=== PATIENT | male | born 1950 | race African-American/Black ===

== ENCOUNTER → 2016-04-05 | Outpatient (CLI) | payer MEDICAID | LOC: RAD 07:45 | PROVIDERS: ATTEND Internal Medicine Medical Oncology | DX: C91.10 Chronic lymphocytic leukemia of B-cell type not having achieved remission (principal) | CPT/HCPCS: 78815; A9552 ==

== ENCOUNTER → 2016-04-23 | Outpatient (CLI) | payer MEDICAID | LOC: RAD 08:12 | PROVIDERS: ATTEND Urology | DX: C61 Malignant neoplasm of prostate (principal) | CPT/HCPCS: 78306; A9503; Q9969 ==

== ENCOUNTER → 2016-08-02 | Outpatient (CLI) | payer MEDICAID ==
[2016-08-02 11:54] LABS: ABSOLUTE EOSINOPHILS # (AUTO) 0.1 10^3/uL (0.0-0.6); ABSOLUTE LYMPHOCYTES (AUTO) 3.9 10^3/uL (0.5-4.7); ABSOLUTE MONOCYTES (AUTO) 0.4 10^3/uL (0.1-1.4); ABSOLUTE NEUT (AUTO) 2.9 10^3/uL (1.7-8.2); BASOPHILS % (AUTO) 0.5 % (0-2); HEMATOCRIT 46.1 % (37.9-51.0); HEMOGLOBIN 15.5 g/dL (13.5-17.0); HGB HCT DIFFERENCE 0.4; LYMPHOCYTES % (AUTO) 52.5 % (13-45); MEAN CORPUSCULAR HEMOGLOBIN 31.2 pg (27.0-33.4); MEAN CORPUSCULAR HGB CONC 33.5 g/dL (32.0-36.0); MEAN CORPUSCULAR VOLUME 93 fl (80-97); MONOCYTES % (AUTO) 6.1 % (3-13); RED BLOOD COUNT 4.95 10^6/uL (4.35-5.55); RED CELL DISTRIBUTION WIDTH 14.2 % (11.5-14.0); SEGMENTED NEUTROPHILS % (AUTO) 38.9 % (42-78); WHITE BLOOD COUNT 7.4 10^3/uL (4.0-10.5)
[2016-08-02 12:13] LABS: BLOOD UREA NITROGEN 8 mg/dL (7-20); CREATININE RESULT 0.93 mg/dL (0.52-1.25)
== END ==
LOC: LAB 10:51
PROVIDERS: ATTEND Radiology Radiation Oncology
DX: C61 Malignant neoplasm of prostate (principal)
CPT/HCPCS: 36415; 82565; 84153; 84520; 85025

== ENCOUNTER → 2016-09-02 | Outpatient (CLI) | payer MEDICAID ==
--- NOTE | 2016-09-02 15:07 | RADIOLOGY REPORT (SQ) ---
EXAM DESCRIPTION: ACUTE ABDOMEN SERIES COMPLETED DATE/TIME: 09/02/2016 2:55 pm REASON FOR STUDY: MALIGNANT NEOPLASM OF PROSTATE C61 MALIGNANT NEOPLASM OF PROSTATE COMPARISON: None. NUMBER OF VIEWS: Three views. TECHNIQUE: Frontal chest, supine abdomen and upright/decubitus abdomen radiographic images acquired. LIMITATIONS: None. FINDINGS: CHEST: Lungs clear of infiltrates. FREE AIR: None. No abnormal gas collections. BOWEL GAS PATTERN: Nonobstructive pattern. No dilated loops or air fluid levels. CALCIFICATIONS: No suspicious calcifications. HARDWARE: None in the abdomen. SOFT TISSUES: No gross mass or suggestion of organomegaly. BONES: No acute fracture. No worrisome bone lesions. OTHER: No other significant finding. IMPRESSION: NO RADIOGRAPHIC EVIDENCE FOR ACUTE ABDOMINAL DISEASE. TECHNICAL DOCUMENTATION: JOB ID: [id number] [employer]- All Rights Reserved
[2016-09-02 15:29] LABS: ABSOLUTE EOSINOPHILS # (AUTO) 0.1 10^3/uL (0.0-0.6); ABSOLUTE LYMPHOCYTES (AUTO) 2.9 10^3/uL (0.5-4.7); ABSOLUTE MONOCYTES (AUTO) 0.4 10^3/uL (0.1-1.4); ABSOLUTE NEUT (AUTO) 2.2 10^3/uL (1.7-8.2); BASOPHILS % (AUTO) 0.4 % (0-2); EOSINOPHILS % (AUTO) 1.9 % (0-6); HEMATOCRIT 47.7 % (37.9-51.0); HEMOGLOBIN 15.5 g/dL (13.5-17.0); HGB HCT DIFFERENCE -1.2; LYMPHOCYTES % (AUTO) 51.9 % (13-45); MEAN CORPUSCULAR HEMOGLOBIN 30.7 pg (27.0-33.4); MEAN CORPUSCULAR HGB CONC 32.4 g/dL (32.0-36.0); MEAN CORPUSCULAR VOLUME 95 fl (80-97); MONOCYTES % (AUTO) 6.8 % (3-13); RED BLOOD COUNT 5.04 10^6/uL (4.35-5.55); RED CELL DISTRIBUTION WIDTH 13.6 % (11.5-14.0); WHITE BLOOD COUNT 5.6 10^3/uL (4.0-10.5)
== END ==
LOC: RAD 14:43
PROVIDERS: ATTEND Radiology Radiation Oncology
DX: C61 Malignant neoplasm of prostate (principal); R97.20 Elevated prostate specific antigen [PSA]; C91.10 Chronic lymphocytic leukemia of B-cell type not having achieved remission; R10.9 Unspecified abdominal pain
CPT/HCPCS: 36415; 74022; 85025

== ENCOUNTER → 2017-02-03 | Outpatient (CLI) | payer MEDICARE, MEDICAID | LOC: OD 08:54 | PROVIDERS: ATTEND Radiology Radiation Oncology | DX: C61 Malignant neoplasm of prostate (principal); R97.20 Elevated prostate specific antigen [PSA]; C91.10 Chronic lymphocytic leukemia of B-cell type not having achieved remission | CPT/HCPCS: 36415; 84153 ==

== ENCOUNTER → 2017-05-12 | Outpatient (CLI) | payer OTHER, MEDICAID ==
--- NOTE | 2017-05-12 16:56 | RADIOLOGY REPORT (SQ) ---
EXAM DESCRIPTION: NM WHOLE BODY BONE SCAN COMPLETED DATE/TIME: 05/12/2017 3:06 pm REASON FOR STUDY: PROSTATE CA (C61 C61 MALIGNANT NEOPLASM OF PROSTATE COMPARISON: Bone scan 04/23/2016, 10/09/2015 PET-CT 04/05/2016 RADIONUCLIDE AND DOSE: 22 millicuries Tc99m MDP. The route of agent administration: Intravenous. ADDITIONAL DRUGS AND DOSES: None. TECHNIQUE: Routine delayed images at 3 hours post radionuclide injection acquired of the bony skelet on including anterior and posterior whole-body projections and additional focused images as needed. LIMITATIONS: None. FINDINGS: BONES: Mild increased uptake along the right 10th costovertebral joint, similar compared t o prior bone scan exams from 04/23/2016 and 10/09/2015. This correlates with bulky bony spurring on PET -CT 04/05/2016. Mild increased uptake in the left elbow, proximal radius and distal humerus likely from osteoarthriti s. Remainder of the skeletal uptake is otherwise unremarkable. KIDNEYS: Symmetric excretion without obstruction. OTHER: No other significant finding. IMPRESSION: No bone scan activity worrisome for metastatic disease given history of prostate cancer COMMENT: Quality measure 147: Current bone scan is compared with any available plain radiographs, p rior bone scans, and CT/MRI. TECHNICAL DOCUMENTATION: JOB ID: [id number] [employer]- All Rights Reserved Reading location - IP/workstation name: [email or web address]
== END ==
LOC: RAD 11:05
PROVIDERS: ATTEND Internal Medicine Medical Oncology
DX: C61 Malignant neoplasm of prostate (principal)
CPT/HCPCS: 78306; A9561; Q9969

== ENCOUNTER → 2017-06-24 | Outpatient (CLI) | payer MEDICARE, MEDICAID ==
--- NOTE | 2017-06-25 08:36 | RADIOLOGY REPORT (SQ) ---
EXAM DESCRIPTION: PET CT SKULL/THIGH COMPLETED DATE/TIME: 06/24/2017 9:58 pm REASON FOR STUDY: PROSTATE CA C61 MALIGNANT NEOPLASM OF PROSTATE COMPARISON: Bone scan 05/12/2017 PET-CT 04/05/2016 CT pelvis 10/31/2015 RADIONUCLIDE AND DOSE: 10.9 mCi F18 FDG The route of agent administration: Intravenous FASTING BLOOD SUGAR: 88 mg/dl CONTRAST TYPE AND DOSE: No CT contrast given. TECHNIQUE: Blood glucose level was verified. Above dose of FDG was injected intravenously. 2-D seg mented attenuation correction images were obtained from the base of the skull to the midthighs. Nonc ontrast CT images were obtained for attenuation correction and fusion with emission images. CT image s were performed without oral or intravenous contrast and are not sensitive for parenchymal lesions. A series of overlapping emission PET images were obtained. Images reviewed and manipulated at [facility] work station by the radiologist. Images stored on PACS. LIMITATIONS: None. FINDINGS: HEAD AND NECK: No areas of abnormal metabolic activity in the soft tissues of the head and neck. CHEST: No areas of abnormal metabolic activity in the chest. ABDOMEN AND PELVIS: There is focal increased uptake at the pylorus. This raises a question of inflam matory change or peptic ulcer disease. SUV 6.7. Activity in a left lateral bladder diverticulum is present. This diverticulum is well demonstrated o n delay images through the bladder, CT pelvis 10/31/2015. No metabolically active pelvic or retroperitoneal lymph nodes. PROXIMAL LOWER EXTREMITIES: No areas of abnormal metabolic activity in the soft tissues of the lower extremities. BONES: No abnormal metabolic activity in the visualized skeleton. ADDITIONAL CT FINDINGS: Mild bilateral gynecomastia. Degenerative changes lower lumbar spine. Liver background SUV 2.5. Blood pool background SUV 2.0 IMPRESSION: No PET-CT evidence of metastatic or recurrent prostate cancer. TECHNICAL DOCUMENTATION: JOB ID: [id number] [employer] All Rights Reserved Reading location - IP/workstation name: [email or web address]
== END ==
LOC: RAD 14:30
PROVIDERS: ATTEND Internal Medicine Medical Oncology
DX: C61 Malignant neoplasm of prostate (principal)
CPT/HCPCS: 78815; A9552

== ENCOUNTER 2017-07-21 09:54 | Observation (INO) | payer MEDICARE, MEDICAID ==
[~2017-07-21 09:54] MED LIST: CEFAZOLIN 1 GM/D5W RTU 1 GM/50 ML RTUPB IV PRN; DEXTROSE 5%-1/2 NORMAL SALINE 1,000 ML IV PRN
[2017-07-21] MEDS ORDERED: MIDAZOLAM 2 MG/2 ML INJ ONE (10:29)
[2017-07-21] MEDS ORDERED: FENTANYL CITRATE INJ/PF 100 MCG/2 ML AMPUL ONE (10:29)
[2017-07-21] MEDS ORDERED: LIDOCAINE 0.5% INJ-PF (5 MG/ML) 50 ML SDV ONE (10:29)
[2017-07-21] MEDS ORDERED: BACITRACIN INJ 50,000 UNIT VIAL ONE (10:29)
[2017-07-21] MEDS ORDERED: DIAZEPAM 5 MG TABLET ONE (11:20)
[2017-07-21] MEDS ORDERED: OXYCODONE-ACETAMINOPHEN 5-325 MG TABLET ONE (11:20)
[2017-07-21] MEDS ORDERED: CEFAZOLIN INJ 1 GM VIAL ONE (11:36)
[2017-07-21 12:02] LABS: HEMATOCRIT 41.9 % (37.9-51.0); MEAN CORPUSCULAR HGB CONC 33.4 g/dL (32.0-36.0); MEAN CORPUSCULAR VOLUME 93 fl (80-97); PLATELET COUNT 120 10^3/uL (150-450); RED BLOOD COUNT 4.52 10^6/uL (4.35-5.55); RED CELL DISTRIBUTION WIDTH 13.7 % (11.5-14.0); WHITE BLOOD COUNT 4.5 10^3/uL (4.0-10.5)
[2017-07-21 12:15] LABS: ANION GAP 9 (5-19); BLOOD UREA NITROGEN 12 mg/dL (7-20); CALCIUM 9.2 mg/dL (8.4-10.2); CARBON DIOXIDE 27 mmol/L (22-30); CHLORIDE 109 mmol/L (98-107); GLUCOSE 91 mg/dL (75-110); POTASSIUM 4.6 mmol/L (3.6-5.0); SODIUM 145.3 mmol/L (137-145)
[2017-07-21] MEDS ORDERED: OXYCODONE-ACETAMINOPHEN 5-325 MG TABLET PO PRN (14:18)
[2017-07-21] MEDS ORDERED: NICOTINE 21 MG/24 HR PATCH.TD24 TD SCH (15:00)
--- NOTE | 2017-07-21 15:45 | RADIOLOGY REPORT (SQ) ---
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 FLUOROSCOPY TIME: 0.1 minute 21 images saved to PACS. TECHNIQUE: Intra-operative images acquired during surgical procedure to evaluate progress. NUMBER OF IMAGES: 21 LIMITATIONS: None. FINDINGS: Selected images from right-sided Port-A-Cath placement. Tip overlies SVC. IMPRESSION: IMAGE(S) OBTAINED DURING PROCEDURE. COMMENT: Quality ID [id number]: Final reports for procedures using fluoroscopy that document radiation exp osure indices, or exposure time and number of fluorographic images (if radiation exposure indices are not available) Please consult full operative report of the attending physician for description of the procedure. TECHNICAL DOCUMENTATION: JOB ID: [id number] [employer]- All Rights Reserved Reading location - IP/workstation name: [email or web address]
--- NOTE | 2017-07-21 16:35 | Discharge Summary ---
Discharge Summary (SDC) - Discharge Final Diagnosis: Chronic leukemia. Date of Surgery: 07/21/17 Discharge Date: 07/22/17 Condition: Fair Treatment or Instructions: Discharge home [after recovery per ASU criteria]. Diet,as tolerated, when fully awake advance as tolerated. Activities within moderation encouraged. Follow up in my office by appointment in about [1 week]. Call for appointment. Leave wounds [covered], [keep clean and dry, until office visit in 1 week]. Hold of on school/work [until evaluation in office]. Meds per med rec. Prescription for Percocet May shower [in 48 hrs], [try to keep operated area as dry as possible]. Prescriptions: Ketorolac Tromethamine [Toradol 10 mg Tablet] 10 mg PO Q8 #9 tablet Oxycodone HCl/Acetaminophen [Percocet 2.5-325 Mg Tablet] 1 each PO Q6HP PRN #15 tablet PRN Reason: Referrals: ELMER COLUNGA MD [Primary Care Provider] - Discharge Diet: As Tolerated Respiratory Treatments at Home: Deep Breathing/Coughing Report the Following to Your Physician Immediately: Shortness of Breath, Unusual Bleeding
--- NOTE | 2017-07-21 16:39 | Operative Report ---
Operative Report DATE OF SURGERY: 07/21/17 PREOPERATIVE DIAGNOSIS: Chronic leukemia. POSTOPERATIVE DIAGNOSIS: Chronic leukemia. OPERATION: 1. Ultrasound evaluation of the right internal jugular vein. 2. Insertion of Port-A-Cath via real-time access in the right internal jugular vein. 3. Angiogram and interpretation. SURGEON: GERRI CUTLER BUFFER NICKEL: None. ANESTHESIA: Moderate Sedation TISSUE REMOVED OR ALTERED: Not applicable. COMPLICATIONS: None. ESTIMATED BLOOD LOSS: 5 mL. INTRAOPERATIVE FINDINGS: Of a satisfactory right internal jugular vein, estimated to be 1.5 cm. Satisfactory axis with placement of the Port-A-Cath. The tip of the catheter just down in the right atrium. Easy egress of blood and ingress of heparinized solution. Angiogram demonstrated smooth flow of contrast through the superior vena cava, right atrium and ventricle. PROCEDURE: After obtaining informed consent, the patient was taken to the [employer]st and positioned supine. The [right] neck and chest were prepared with chlorhexidine and draped out with sterile linen. After the " universal timeout", in which it was verified that the patient continued to receive antibiotic, the procedure commenced. A steriley sheathed ultrasound probe was used to evaluate the [ right] internal jugular vein. Local anesthesia was infiltrated adjacent to the probe. Access into the [right] internal jugular vein was obtained using a micropuncture needle, followed by micropuncture wire and then a micropuncture catheter. This was followed by introduction of a 0.035 guidewire the tip of which was placed down into the inferior vena cava . The port sites was marked , locally anesthetized and incision made. Dissection now proceeded to the deep subcutaneous subcutaneous tissues so that a pocket for the port was made. Meticulous hemostasis was secured and the catheter was tunneled between the 2 incisions. Proximally, the catheter was now positioned using a peel-away sheath. Distally the catheter was tailored to an appropriate length and then mated to the port using the contained fixating device. The port was now placed in the pocket and the catheter optimally positioned. The port was accessed with a Galaviz needle and an angiogram done under digital subtraction. The findings as dictated. With adequate and satisfactory positioning, both lumens of the chamber were irrigated with heparinized solution. The wounds were now closed using interrupted 3-0 PDS to the subcutaneous tissues and a continuous subcuticular suture of 4-0 Monocryl to the skin. These are reinforced with Steri-Strips over benzoin and then dressings applied. Time: 0 Minute. Dose: 6.2 m Gy Contrast: 5 mls. Isovue 300. Copies of the dictated operative report for Dr. Gerri Amin MD.
[2017-07-21] MEDS: KETOROLAC TROMETHAMINE 10 MG TABLET PO PRN (17:45)
[2017-07-21] MEDS: ACYCLOVIR 200 MG CAPSULE PO SCH (18:42)
[2017-07-21] MEDS: HYDROCODONE/ACETAMINOPHEN 7.5-325 MG TABLET PO SCH ×2 (21:37→22:52)
[2017-07-22] MEDS: KETOROLAC TROMETHAMINE 10 MG TABLET PO PRN (05:25)
[2017-07-22] MEDS: ACYCLOVIR 200 MG CAPSULE PO SCH (08:35)
[2017-07-22] MEDS: HYDROCODONE/ACETAMINOPHEN 7.5-325 MG TABLET PO SCH (08:35)
[2017-07-22 09:54] VITALS: BP 144/88
[2017-07-22] MEDS ORDERED: BICALUTAMIDE 50 MG TABLET PO SCH (10:00)
[2017-07-22] MEDS ORDERED: LISINOPRIL PO SCH (10:00)
[2017-07-22] MEDS ORDERED: LISINOPRIL 10 MG TABLET PO SCH (10:00)
[2017-07-22] MEDS ORDERED: ACYCLOVIR 400 MG PO SCH (10:00)
--- NOTE | 2017-07-22 15:23 | RADIOLOGY REPORT (SQ) ---
EXAM DESCRIPTION: CHEST SINGLE VIEW COMPLETED DATE/TIME: 07/21/2017 10:40 am REASON FOR STUDY: PREOP COMPARISON: None. EXAM PARAMETERS: NUMBER OF VIEWS: One view TECHNIQUE: Single frontal radiograph of the chest. RADIATION DOSE: N/A LIMITATIONS: None. FINDINGS: LUNGS AND PLEURA: No opacities, masses or pneumothorax. No pleural effusion. MEDIASTINUM AND HILAR STRUCTURES: No masses. No contour abnormality. HEART AND VASCULAR STRUCTURES: Heart size normal. Vascularity normal. HARDWARE: None. BONES: No acute findings. OTHER: No other significant finding. IMPRESSION: NO ACUTE RADIOGRAPHIC FINDING IN THE CHEST. TECHNICAL DOCUMENTATION: JOB ID: [id number] [employer]- All Rights Reserved Reading location - IP/workstation name: [email or web address]
== END 2017-07-22 11:00 | disposition home or self-care (01) ==
LOC: CCL 09:54 → 3W 11:40
PROVIDERS: ADMIT Surgery; ATTEND Surgery
PROC: 0JH60WZ Insertion of Totally Implantable Vascular Access Device into Chest Subcutaneous Tissue and Fascia, Open Approach (ICD-10-PCS; principal; 2017-07-21)
PROC: 02H633Z Insertion of Infusion Device into Right Atrium, Percutaneous Approach (ICD-10-PCS; 2017-07-21)
DX: C91.90 Lymphoid leukemia, unspecified not having achieved remission (principal); C61 Malignant neoplasm of prostate; I10 Essential (primary) hypertension; M19.90 Unspecified osteoarthritis, unspecified site; G89.29 Other chronic pain; M54.9 Dorsalgia, unspecified; F17.210 Nicotine dependence, cigarettes, uncomplicated; Z01.818 Encounter for other preprocedural examination; Z79.899 Other long term (current) drug therapy
CPT/HCPCS: 36415; 85027; 80048; 36561; 76937; 77001; 71045; G0378 ×2; C1752; C1788; Q9967; A9270 ×10; J2250; J3490 ×2; J0690 ×2; J3010; J1644

== ENCOUNTER 2017-11-16 09:59 | Emergency (ER) | payer MEDICARE, MEDICAID ==
[2017-11-16 11:15] LABS: APPEARANCE,URINE CLOUDY; BILIRUBIN,URINE NEGATIVE (NEGATIVE); COLOR,URINE YELLOW; GLUCOSE, URINE NEGATIVE (NEGATIVE); KETONES,URINE NEGATIVE (NEGATIVE); LEUKOCYTE ESTERASE,URINE MODERATE (NEGATIVE); NITRITE,URINE NEGATIVE (NEGATIVE); PROTEIN,URINE 100 mg/dL (NEGATIVE); URINE SPECIFIC GRAVITY 1.029
[2017-11-16] MEDS ORDERED: CIPROFLOXACIN HCL 500 MG TABLET PO ONE (11:19)
--- NOTE | 2017-11-16 11:37 | ER Document Report ---
ED General - General Chief Complaint: Urinary Problem Stated Complaint: URINARY ISSUE Time Seen by Provider: 11/16/17 10:25 TRAVEL OUTSIDE OF THE [place] IN LAST 30 DAYS: No - HPI Patient complains to provider of: dysuria Notes: pt present for dysuria and bladder spasms. states hx of rad and chemo currently on hormone threapy state no f c n v d. no recent antibiotic. no dc from penis not sexually active - Related Data Allergies/Adverse Reactions: No Known Allergies Allergy (Verified 11/16/17 10:00) Past Medical History - Social History Smoking Status: Current Every Day Smoker Family History: Reviewed & Not Pertinent Patient has suicidal ideation: No Patient has homicidal ideation: No - Past Medical History Cardiac Medical History: Reports: Hx Hypertension Denies: Hx Coronary Artery Disease, Hx Heart Attack Pulmonary Medical History: Denies: Hx Asthma, Hx Bronchitis, Hx COPD, Hx Pneumonia Neurological Medical History: Denies: Hx Cerebrovascular Accident, Hx Seizures Renal/ Medical History: Denies: Hx Peritoneal Dialysis Musculoskeletal Medical History: Reports Hx Arthritis - gout - Immunizations Hx Diphtheria, Pertussis, Tetanus Vaccination: Yes Review of Systems - Review of Systems Constitutional: No symptoms reported EENT: No symptoms reported Cardiovascular: No symptoms reported Respiratory: No symptoms reported Gastrointestinal: No symptoms reported Genitourinary: Dysuria Male Genitourinary: No symptoms reported Musculoskeletal: No symptoms reported Skin: No symptoms reported Hematologic/Lymphatic: No symptoms reported Neurological/Psychological: No symptoms reported -: Yes All other systems reviewed and negative Physical Exam - Vital signs Vitals: Temp Pulse Resp BP Pulse Ox 97.8 F 96 16 161/79 H 100 11/16/17 10:03 11/16/17 10:03 11/16/17 10:03 11/16/17 10:03 11/16/17 10:03 Interpretation: Normal - General General appearance: Appears well, Alert - HEENT Head: Normocephalic, Atraumatic Eyes: Normal Pupils: PERRL - Respiratory Respiratory status: No respiratory distress Chest status: Nontender Breath sounds: Normal Chest palpation: Normal - Cardiovascular Rhythm: Regular Heart sounds: Normal auscultation Murmur: No - Abdominal Inspection: Normal Distension: No distension Bowel sounds: Normal Tenderness: Nontender Organomegaly: No organomegaly - Back Back: Normal, Nontender - Extremities General upper extremity: Normal inspection, Nontender, Normal color, Normal ROM , Normal temperature General lower extremity: Normal inspection, Nontender, Normal color, Normal ROM , Normal temperature, Normal weight bearing. No: Gavi's sign - Neurological Neuro grossly intact: Yes Cognition: Normal Orientation: AAOx4 Bobby Coma Scale Eye Opening: Spontaneous Bobby Coma Scale Verbal: Oriented Bobby Coma Scale Motor: Obeys Commands [place] Coma Scale Total: 15 Speech: Normal Motor strength normal: LUE, RUE, LLE, RLE Sensory: Normal - Psychological Associated symptoms: Normal affect, Normal mood - Skin Skin Temperature: Warm Skin Moisture: Dry Skin Color: Normal Course - Re-evaluation Re-evalutation: 11/17/17 13:03 ua with signs of infection. will start on antibiotic cipro. no signs of sepsis. will also give ditropan for spasm control as pt resquesr. pt to fu - Vital Signs Vital signs: Temp Pulse Resp BP Pulse Ox 97.8 F 93 18 159/79 H 98 11/16/17 10:03 11/16/17 11:39 11/16/17 11:39 11/16/17 11:39 11/16/17 11:39 - Laboratory Laboratory results interpreted by me: 11/16/17 10:10 Urine Protein 100 H Urine Blood LARGE H Urine Urobilinogen 2.0 H Ur Leukocyte Esterase MODERATE H Discharge - Discharge Clinical Impression: UTI (urinary tract infection) Qualifiers: Urinary tract infection type: acute cystitis Hematuria presence: with hematuria Qualified Code(s): N30.01 - Acute cystitis with hematuria Condition: Good Disposition: HOME, SELF-CARE Instructions: Ciprofloxacin ([facility]), Urinary Tract Infection ([facility]) Additional Instructions: Your urinalysis does show signs of infection. We will start you on antibiotic of ciprofloxacin. To help out with your pain and spasming also start you on a medication called Ditropan. Please take as directed. Follow-up with your primary care physician in the next 3-5 days. Return to ER if symptoms worsen. Recommend also taking Tylenol Motrin for your pain control. Prescriptions: Ciprofloxacin HCl [Cipro 500 mg Tablet] 500 mg PO BID #20 tablet Oxybutynin Chloride [Ditropan 5 Mg Tablet] 2.5 mg PO BID #10 tablet Forms: Return to Work Referrals: ELMER COLUNGA MD [Primary Care Provider] - Follow up as needed
[2017-11-16 11:41] VITALS: BP 159/79
== END 2017-11-16 11:39 | disposition home or self-care (01) ==
LOC: ER 09:59
DX: N30.01 Acute cystitis with hematuria (principal); N32.89 Other specified disorders of bladder; F17.200 Nicotine dependence, unspecified, uncomplicated; I10 Essential (primary) hypertension; Z79.899 Other long term (current) drug therapy; Z92.21 Personal history of antineoplastic chemotherapy; Z92.3 Personal history of irradiation
CPT/HCPCS: 99283; 87086; 81001; A9270

== ENCOUNTER → 2019-01-21 | Outpatient (CLI) | payer MEDICARE, MEDICAID ==
[2019-01-21 10:30] LABS: HEMATOCRIT 39.5 % (37.9-51.0); HEMOGLOBIN 13.6 g/dL (13.5-17.0); MEAN CORPUSCULAR HEMOGLOBIN 30.4 pg (27.0-33.4); MEAN CORPUSCULAR HGB CONC 34.4 g/dL (32.0-36.0); MEAN CORPUSCULAR VOLUME 89 fl (80-97); PLATELET COUNT 183 10^3/uL (150-450); RED BLOOD COUNT 4.46 10^6/uL (4.35-5.55); RED CELL DISTRIBUTION WIDTH 14.9 % (11.5-14.0); WHITE BLOOD COUNT 4.7 10^3/uL (4.0-10.5)
[2019-01-21 10:48] LABS: ALBUMIN 4.2 g/dL (3.5-5.0); ALKALINE PHOSPHATASE 79 U/L (38-126); ANION GAP 10 (5-19); ASPARTATE AMINO TRANSFERASE 21 U/L (17-59); BILIRUBIN,DIRECT 0.2 mg/dL (0.0-0.4); BILIRUBIN,TOTAL 0.4 mg/dL (0.2-1.3); BLOOD UREA NITROGEN 10 mg/dL (7-20); CALCIUM 9.6 mg/dL (8.4-10.2); CARBON DIOXIDE 21 mmol/L (22-30); CHLORIDE 111 mmol/L (98-107); GLUCOSE 105 mg/dL (75-110); POTASSIUM 4.3 mmol/L (3.6-5.0); TOTAL PROTEIN 7.4 g/dL (6.3-8.2)
[2019-01-21 11:31] LABS: ABSOLUTE LYMPHOCYTES# (MANUAL) 1.8 10^3/uL (0.5-4.7); ABSOLUTE MONOCYTES # (MANUAL) 0.2 10^3/uL (0.1-1.4); BASOPHILS % (MANUAL) 0 % (0-2); EOSINOPHILS % (MANUAL) 3 % (0-6); LYMPHOCYTES % (MANUAL) 36 % (13-45); MONOCYTES % (MANUAL) 5 % (3-13); SEGMENTED NEUTROPHILS % (MAN) 53 % (42-78); TOTAL CELLS COUNTED 100
[2019-01-21 11:32] LABS: ANISOCYTOSIS SLIGHT; PLATELET COMMENT ADEQUATE; POLYCHROMASIA SLIGHT; SMUDGE CELLS PRESENT
[2019-01-21 11:48] LABS: FOLATE 9.02 ng/mL (>2.76)
[2019-01-21 11:55] LABS: PROSTATE SPECIFIC ANTIGEN < 0.060 ng/mL (<4.00)
== END ==
LOC: OD 08:36
PROVIDERS: ATTEND Internal Medicine
DX: E53.8 Deficiency of other specified B group vitamins (principal); D50.9 Iron deficiency anemia, unspecified; C61 Malignant neoplasm of prostate; D51.8 Other vitamin B12 deficiency anemias; C91.10 Chronic lymphocytic leukemia of B-cell type not having achieved remission
CPT/HCPCS: 36415; 80053; 82607; 82728; 82746; 83540; 83550; 84153; 85025; 88184; 88185